=== PATIENT | male | born 2000 | race African-American/Black ===

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

== ENCOUNTER 2022-03-23 15:05 | Emergency (ER) | payer MEDICAID, OTHER ==
[~2022-03-23] VITALS: Ht 182.9 cm; Wt 89.0 kg
[2022-03-23] MEDS ORDERED: ACETAMINOPHEN 325MG TABLET PO ONE (21:45)
[2022-03-23 22:30] VITALS: BP 139/85
== END 2022-03-23 22:30 | disposition home or self-care (01) ==
LOC: ER 15:05
DX: M25.571 Pain in right ankle and joints of right foot (principal)
CPT/HCPCS: 29515; 73610; 99283; Z7610

== ENCOUNTER 2024-02-20 18:12 | Emergency (ER) | payer SELFPAY ==
[~2024-02-20] VITALS: Ht 182.9 cm; Wt 81.8 kg
[2024-02-20] MEDS ORDERED: IBUPROFEN 800MG TABLET PO ONE (18:30)
[2024-02-20 19:21] VITALS: BP 119/71; PULSE 62; RESP 18; TEMP 98.3; O2SAT 98
== END 2024-02-20 19:57 | disposition home or self-care (01) ==
LOC: ER 18:12
DX: S62.161A Displaced fracture of pisiform, right wrist, initial encounter for closed fracture (principal); V00.131A Fall from skateboard, initial encounter; Y93.89 Activity, other specified; Y92.89 Other specified places as the place of occurrence of the external cause; Y99.8 Other external cause status
CPT/HCPCS: 29125; 73090; 73110; 73130; 99284

== ENCOUNTER 2024-11-03 20:04 | Emergency (ER) | payer SELFPAY ==
[~2024-11-03] VITALS: Ht 185.4 cm; Wt 84.0 kg
[2024-11-03 20:25] VITALS: BP 147/81; PULSE 73; RESP 18; TEMP 36.7; O2SAT 99
[2024-11-03] MEDS: KETOROLAC 15MG/ML VIAL IM ONE (22:30)
[2024-11-04] MEDS: KETOROLAC 15MG/ML VIAL IM NR (02:03)
[2024-11-04] MEDS ORDERED: KETO10TA2 MT (02:06)
== END 2024-11-04 02:15 | disposition home or self-care (01) ==
LOC: ER 20:04
DX: S80.212A Abrasion, left knee, initial encounter (principal); S60.511A Abrasion of right hand, initial encounter; M25.562 Pain in left knee; M25.531 Pain in right wrist; M25.522 Pain in left elbow; V03.10XA Pedestrian on foot injured in collision with car, pick-up truck or van in traffic accident, initial encounter; Y93.89 Activity, other specified; Y92.89 Other specified places as the place of occurrence of the external cause; Y99.8 Other external cause status
CPT/HCPCS: 99283; 73564; 96372; J1885; 96360; 96361